=== PATIENT | female | born 1945 | race Caucasian/White ===

== ENCOUNTER → 2017-03-06 | Day surgery (SDC) | payer MEDICARE ==
[2017-03-06] VITALS (12 sets, daily range): BP systolic 123–182; BP diastolic 53–72; PULSE 64–81; RESP 10–19; O2SAT 92–98
[~2017-03-06] VITALS: Ht 160 cm; Wt 49.0 kg
[~2017-03-06] MED LIST: ACET-171 PO; ACID1TAB4 PO; ADV250INH IH; ALBU8.5H2 INHALATION; AMLO5TAB2 PO; ATOR40TA69 PO; CALC500T9 PO; CLOP75TA28 PO; DOCU-41 PO; FEXO-106 PO; FLUT16SP NS; FRSM80T PO; HYDR-4003 PO; Heparin 10,000 Unit/1,000 mL NS Premix IV ONE; METO10TA7 PO; ONDA-53 PO; PANT40TA3 PO; POTA20TA16 PO; SENN-133 PO; VIT1TABL57 PO; WARF2.5T82 PO; fentaNYL-PF 50 mCg/mL 2 mL Inj ONE
[2017-03-06 10:42] LABS: BASOPHILS % (AUTO) 4.4 % (0-3); MONOCYTES % (AUTO) 29.1 % (4-12); Mean Corpuscular Hemoglobin 30.5 pg (27.0-35.0); Mean Corpuscular Volume 96.2 fL (81-100); NEUTROPHILS % (AUTO) 23.4 % (40-74); Platelet Count 290 bil/L (150-400)
[2017-03-06 11:01] LABS: INR 0.99 ratio
--- NOTE | 2017-03-06 11:12 | NUR ---
Admit [facility]/Removal attempt Admitted to [facility] about 1000. VSS though hypertensive with any stress. Denies pain. Vomited small amt. and states this is a chronic problem that comes on suddenly. Resolved spontaneously. Has F/U with provider on this issue. IV started and labs sent. See EMR for further info and assessment. Dr. Fernandez in to consent pt. Procedure and recovery reviewed and verbalizes understanding. Pt. very anxious about bedside attempt. Dr. Fernandez ordered sedation. director of cardiac cath lab personal attempted at 1100. Versed 1mg IV and Fentanyl 50mcg IV given and pt. stated helpful and tolerated with minimal discomfort. SPO2 did dip afterwards and O2 at 2L initiated. No bleeding. Cont. to monitor until procedure time. VSS. Tele SR.
--- NOTE | 2017-03-06 12:56 | DRSVH ---
PROCEDURE: 1. Removal of right internal jugular vein tunneled hemodialysis catheter. 2. Conscious sedation x 30 minutes. INDICATIONS: End-stage renal disease. No longer needs dialysis access. COMPARISON: None. Technique:Periprocedural antibiotics were administered when necessary. Informed, written consent fro m the patient was obtained prior to the procedure. Patient was brought to the angiography suite, and conscious sedation was administered intravenously by long-term staff, while continuous cardiore spiratory monitoring was performed. The right internal jugular vein tunneled hemodialysis catheter an d surrounding skin were prepped and draped sterilely, and the surrounding skin was infused with lidoc zachary. A scalpel and blunt dissection were used to liberate the cuff. Traction was applied and the cat heter was removed. Pressure was applied for hemostasis. Fluoroscopy time: 0 IMPRESSION: Right internal jugular vein tunneled hemodialysis catheter removal. Dictated by: Alejandra Fernandez M.D. on 03/06/2017 at 12:53 Approved by: Alejandra Fernandez M.D. on 03/06/2017 at 12:54
--- NOTE | 2017-03-06 14:49 | NUR ---
Procedure/Recovery/Discharge To [facility] [employer] around 1200. Returned about 1245. VSS. No bleeding or hematoma at site. No change t/o recovery. Refused po stating wanted to go out to lunch. Bedrest complete at 1345. Discharge instructions given, see sheets. Verbalizes understanding. IV discontinued intact. Discharged home with and all belongings ambulatory at 1400 in no distress.
== END | disposition home or self-care (01) ==
LOC: SOUO 00:15
PROVIDERS: ATTEND Radiology Diagnostic Radiology
DX: Z49.01 Encounter for fitting and adjustment of extracorporeal dialysis catheter (principal); N18.6 End stage renal disease; D63.1 Anemia in chronic kidney disease; N05.9 Unspecified nephritic syndrome with unspecified morphologic changes; D68.9 Coagulation defect, unspecified; Z79.82 Long term (current) use of aspirin
CPT/HCPCS: 36415; 36589; 80048; 85025; 85610; 99152; J1644; J2250; J3010